=== PATIENT | male | born 1995 | race Caucasian/White ===

== ENCOUNTER → 2022-12-23 11:42 | Outpatient (BNVA) | payer OTHER, SELFPAY | PROVIDERS: Visit Provider Family Medicine | DX: J98.8 Other specified respiratory disorders (principal); B96.89 Other specified bacterial agents as the cause of diseases classified elsewhere; H11.33 Conjunctival hemorrhage, bilateral; R09.82 Postnasal drip; J02.9 Acute pharyngitis, unspecified | CPT/HCPCS: 87071; 87880 ==